=== PATIENT | female | born 1965 | race Caucasian/White ===

== ENCOUNTER 2023-08-10 20:50 | Emergency (ER) | payer OTHER, SELFPAY ==
[2023-08-10 21:02] VITALS: BP 156/76; PULSE 85; RESP 16; TEMP 36.8; O2SAT 98; BMI 21.8
--- NOTE | 2023-08-10 21:29 | XR_ITS ---
Patient: [facility] Facility:?[facility] Patient ID:?[id number] Site Patient ID:?[id number] Site :?[id number] Study:?XRay-Abdomen 2V-08/10/2023 9:56:20 PM Ordering Physician:NATY Final Report: INDICATION: Abdominal pain TECHNIQUE: Abdomen/Pelvis radiograph 3 views COMPARISON: None FINDINGS: Bowel: Moderate amount of stool is present throughout the colon which may be due to chronic constipation. The bowel gas pattern is normal without evidence of bowel obstruction. Soft tissue: No evidence of pneumoperitoneum present. No suspicious calcifications noted. Bone: Mild dextroscoliosis of the lumbar spine is noted. IMPRESSION: 1. Unremarkable appearance of the visualized abdomen. Dictated by Rene Frye MD @ 08/10/2023 10:08:23 PM Dictated by: Rene Frye MD @ 08/10/2023 22:08:28 Signed by:Tj Frye MD @08/10/2023 10:08:28 PM (Electronic Signature)
--- NOTE | 2023-08-10 21:46 | ED_ITS ---
HPI - Abdominal Pain General Date Seen: 08/10/23 Chief Complaint: Abdominal Pain Stated Complaint: possible bowel blockage Time Seen by Provider: 08/10/23 21:05 Source: patient Mode of arrival: ambulatory Limitations: no limitations History of Present Illness HPI narrative: was seen Monday in [place] [facility] for abd. pain that she thought was gallbladder, dx with constipation and prescribed MiraLAX, tried the MiraLAX for the past few days and has only been able to pass a small stool today, continues to have abd. pain rated 7/10. no hx of obstructions, abd surgical hx includes hernia repair, tuba ligation, and D&C a long time ago. today she has been having increased nausea along with the pain.Patient is a very nice 58-year-old female presents here with abdominal pain in a possible obstruction, she has had this now for approximately 5-6 days, no radiation to her back, of the pain, somewhat nauseous able to eat small amounts and drink, and passing some gas but not a lot, she is taking at least 5-6 times a MiraLax really with no avail no significant results, she notes that she had a normal colonoscopy in 2013, she is watching some grandchildren here in [place] and that is why she is here today. MD elicited complaint: abdominal pain Pertinent past history: constipation Onset (ago): day(s) (6) Pain Consistency: constant Location: periumbilical Severity: moderate Quality: cramping and stabbing Migration to: no migration Exacerbating factors: nothing Associated symptoms: nausea Related Data Home Medications Medication Instructions Recorded Confirmed bupropion HCl PO 08/10/23 sertraline .ROUTE 08/10/23 Allergies Allergy/AdvReac Type Severity Reaction Status Date / Time Penicillins Allergy Verified 08/10/23 21:09 Sulfa (Sulfonamide Allergy Verified 08/10/23 21:09 Antibiotics) Review of Systems Status of ROS Reports: 10 or more systems reviewed and unremarkable except as noted in History and below PFSH PFS Social History Smoking Status: Never smoker Do you use any of these nicotine containing products: None How often do you have a drink containing alcohol: never How often do you have six or more drinks on one occasion: Never AUDIT-C Alcohol total score: 0 Non-prescribed substance use: denies use service: No Exam Narrative: Exam Narrative: Patient appears to be in no apparent distress room 7, speaking to me normally there is no scleral icterus redness or TMs are normal oropharynx is normal, pupils are equal round reactive to light and cranial nerves 3-12 are normal her neck is supple full range of motion her chest is good air entry bilaterally her heart sounds are normal with no clicks murmurs or gallops her abdomen is not d istended, bowel sounds are normal in all quadrants there is no significant organomegaly and she does not have a lot of tenderness. There is no CVA tenderness she moves all extremities independently and well, skin reveals no petechiae or redness Const: Vital Signs, click to edit/add: Vital Signs - 24 hr 08/10/23 21:02 Temperature 98.2 F Pulse Rate [Pulse Oximeter] 85 Respiratory Rate 16 Blood Pressure [Ri ght Upper Arm] 156/76 H Pulse Oximetry 98 Oxygen Delivery Me thod Room Air Documenting provider has reviewed patient's vital signs: yes Course Course ED Course: I discussed with her that I think this likely is due to her chronic constipation, use of MiraLax or GoLYTELY is suggested, she does have mild hyponatremia, she should use some rehydration solutions along with the salt. I do not think it is in the level that we need to hospitalize her do anything other than what we are do currently doing. We did give her L of fluids while she was here. She was very accepting of this, told me she has chronic constipation, bowel was worried as the doctor told her if she did not have a bowel movement with the few doses of MiraLax that she should come in, went over signs and symptoms of worsening, she should maybe try a few enemas also. Vital Signs Vital signs: Initial Vital Signs Temperature 98.2 F 08/10/23 21:02 Temperature Source Temporal Artery Scan 08/10/23 21:02 Pulse Rate 85 08/10/23 21:02 Respiratory Rate 16 08/10/23 21:02 Blood Pressure 156/76 H 08/10/23 21:02 Blood Pressure Mean 102 08/10/23 21:02 Blood Pressure Position Supine 08/10/23 21:02 Pulse Oximetry 98 08/10/23 21:02 Oxygen Delivery Method Room Air 08/10/23 21:02 Vital Signs Temperature 98.2 F 08/10/23 21:02 Pulse Rate 85 08/10/23 21:02 Respiratory Rate 16 08/10/23 21:02 Blood Pressure 156/76 H 08/10/23 21:02 Pulse Oximetry 98 08/10/23 21:02 Oxygen Delivery Method Room Air 08/10/23 21:02 Temperature 98.2 F 08/10/23 21:02 Pulse Rate 85 08/10/23 21:02 Respiratory Rate 16 08/10/23 21:02 Blood Pressure 156/76 H 08/10/23 21:02 Pulse Oximetry 98 08/10/23 21:02 Oxygen Delivery Method Room Air 08/10/23 21:02 Medications Administered Medications: Discontinued Medications Generic Name Dose Route Start Last Admin Trade Name Freq PRN Reason Stop Dose Admin Sodium Chloride 1,000 mls @ 1,000 mls/hr 08/10/23 21:30 08/10/23 22:59 0.9 % Sodium Chloride 1000 Ml IV 08/10/23 22:29 Infused .Q1H DIPAK Infusion Ondansetron HCl 4 mg 08/10/23 21:56 08/10/23 21:59 Ondansetron 2 Mg/Ml Inj IVP 08/10/23 21:57 4 mg ONCE ONE Administration MDM - Abdominal Pain MDM Narrative Medical decision making narrative: During the evaluation of this patient I considered multiple differential diagno sis including life-threatening differentials which are appendicitis, aortic aneurysm, mesenteric ischemia, bowel perforation, ectopic , volvulus and bowel obstruction, other differential diagnosis include but are not limited to inflammatory bowel disease, cholecystitis, pancreatitis, hepatitis, gastritis, GERD, diverticulitis, peptic ulcer disease, pyelonephritis/UTI, renal colic/stone, pelvic inflammatory disease, cervicitis, endometritis, intrauterine , dysfunctional uterine bleeding, ovarian cyst/torsion, spontaneous as well as other etiologies I discussed with her that she has had a number of CT scans in her life, greater than 5 that I will start with a plain film, go from there. Medical Records Attestation: I reviewed the patient's medical records. Lab Data Attestation: I reviewed the patient's lab results. Labs: Lab Results 08/10/23 08/10/23 08/10/23 Range/Units 21:45 21:45 21:45 WBC 6.09 (4.50-11.00) K/uL RBC 3.85 L (4.00-5.20) m/uL Hgb 12.0 (12.0-16.0) gm/dL Hct 35.5 (33.0-51.0) % MCV 92 (80-100) fL MCH 31 (26-34) pg MCHC 34 (32-36) gm/dL RDW Coeff of Guadalupe 12.3 (11.5-15.5) % Plt Count 261 (140-440) K/uL Neut % (Auto) 67.2 (42.0-72.0) % Lymph % (Auto) 21.8 (20-44) % Burnet % (Auto) 8.2 (0.0-11.0) % Eos % (Auto) 2.3 (0.0-7.0) % Baso % (Auto) 0.5 (0.0-3.0) % Neut # (Auto) 4.09 (1.7-7.0) K/uL Lymph # (Auto) 1.33 (0.90-2.90) K/uL Burnet # (Auto) 0.50 (0.00-0.90) K/UL Eos # (Auto) 0.14 (0.00-0.50) K/uL Baso # (Auto) 0.03 (0.00-0.30) K/uL Abs Immat Gran (auto) 0.00 (0.00-0.30) K/uL Imm/Tot Granulo (auto) 0.0 % Sodium 130 L (135-149) mmol/L Potassium 3.8 (3.6-5.1) mmol/L Chloride 99 (96-114) mmol/L Carbon Dioxide 27 (20-32) mmol/L Anion Gap 4 L (7-15) mEq/L BUN 9 (7-30) mg/dL Creatinine 1.1 (0.5-1.5) mg/dL Estimated Creat Clear 50.91 Estimated GFR 58 ml/min Glucose 99 (60-115) mg/dL Lactate < 0.4 L (0.5-1.9) mmol/L Calcium 9.2 (8.4-10.6) mg/dL Total Bilirubin 0.4 Cancelled (0.1-1.5) mg/dL Direct Bilirubin 0.1 Cancelled (0.0-0.5) mg/dL AST 26 (12-35) U/L ALT (4-35) U/L Alkaline Phosphatase (40-150) U/L Total Protein (6.0-8.3) g/dL Albumin (3.3-5.0) g/dL Amylase (18-89) U/L Lipase (23-300) U/L Urine Color (Yellow) Urine Appearance (Clear) Urine pH (5.0-8.5) Ur Specific Kathleen (1.000-1.030) Urine Protein (Negative) Urine Glucose (UA) (Negative) Urine Ketones (Negative) Urine Blood (Negative) Urine Nitrite (Negative) Urine Bilirubin (Negative) Urine Urobilinogen (0.2-1.0) Ur Leukocyte Esterase (Negative) Urine RBC (0-2) Urine WBC (0-5) Ur Squamous Epith Cells (None-Few) Urine Bacteria (None) 08/10/23 08/10/23 08/10/23 Range/Units 21:45 21:45 21:45 WBC (4.50-11.00) K/uL RBC (4.00-5.20) m/uL Hgb (12.0-16.0) gm/dL Hct (33.0-51.0) % MCV (80-100) fL MCH (26-34) pg MCHC (32-36) gm/dL RDW Coeff of Guadalupe (11.5-15.5) % Plt Count (140-440) K/uL Neut % (Auto) (42.0-72.0) % Lymph % (Auto) (20-44) % Burnet % (Auto) (0.0-11.0) % Eos % (Auto) (0.0-7.0) % Baso % (Auto) (0.0-3.0) % Neut # (Auto) (1.7-7.0) K/uL Lymph # (Auto) (0.90-2.90) K/uL Burnet # (Auto) (0.00-0.90) K/UL Eos # (Auto) (0.00-0.50) K/uL Baso # (Auto) (0.00-0.30) K/uL Abs Immat Gran (auto) (0.00-0.30) K/uL Imm/Tot Granulo (auto) % Sodium (135-149) mmol/L Potassium (3.6-5.1) mmol/L Chloride (96-114) mmol/L Carbon Dioxide (20-32) mmol/L Anion Gap (7-15) mEq/L BUN (7-30) mg/dL Creatinine (0.5-1.5) mg/dL Estimated Creat Clear Estimated GFR ml/min Glucose (60-115) mg/dL Lactate (0.5-1.9) mmol/L Calcium (8.4-10.6) mg/dL Total Bilirubin (0.1-1.5) mg/dL Direct Bilirubin (0.0-0.5) mg/dL AST Cancelled (12-35) U/L ALT 14 Cancelled (4-35) U/L Alkaline Phosphatase 98 Cancelled (40-150) U/L Total Protein 7.4 (6.0-8.3) g/dL Albumin (3.3-5.0) g/dL Amylase (18-89) U/L Lipase (23-300) U/L Urine Color (Yellow) Urine Appearance (Clear) Urine pH (5.0-8.5) Ur Specific Kathleen (1.000-1.030) Urine Protein (Negative) Urine Glucose (UA) (Negative) Urine Ketones (Negative) Urine Blood (Negative) Urine Nitrite (Negative) Urine Bilirubin (Negative) Urine Urobilinogen (0.2-1.0) Ur Leukocyte Esterase (Negative) Urine RBC (0-2) Urine WBC (0-5) Ur Squamous Epith Cells (None-Few) Urine Bacteria (None) 08/10/23 08/10/23 08/10/23 Range/Units 21:45 21:45 21:47 WBC (4.50-11.00) K/uL RBC (4.00-5.20) m/uL Hgb (12.0-16.0) gm/dL Hct (33.0-51.0) % MCV (80-100) fL MCH (26-34) pg MCHC (32-36) gm/dL RDW Coeff of Guadalupe (11.5-15.5) % Plt Count (140-440) K/uL Neut % (Auto) (42.0-72.0) % Lymph % (Auto) (20-44) % Burnet % (Auto) (0.0-11.0) % Eos % (Auto) (0.0-7.0) % Baso % (Auto) (0.0-3.0) % Neut # (Auto) (1.7-7.0) K/uL Lymph # (Auto) (0.90-2.90) K/uL Burnet # (Auto) (0.00-0.90) K/UL Eos # (Auto) (0.00-0.50) K/uL Baso # (Auto) (0.00-0.30) K/uL Abs Immat Gran (auto) (0.00-0.30) K/uL Imm/Tot Granulo (auto) % Sodium (135-149) mmol/L Potassium (3.6-5.1) mmol/L Chloride (96-114) mmol/L Carbon Dioxide (20-32) mmol/L Anion Gap (7-15) mEq/L BUN (7-30) mg/dL Creatinine (0.5-1.5) mg/dL Estimated Creat Clear Estimated GFR ml/min Glucose (60-115) mg/dL Lactate (0.5-1.9) mmol/L Calcium (8.4-10.6) mg/dL Total Bilirubin (0.1-1.5) mg/dL Direct Bilirubin (0.0-0.5) mg/dL AST (12-35) U/L ALT (4-35) U/L Alkaline Phosphatase (40-150) U/L Total Protein Cancelled (6.0-8.3) g/dL Albumin 4.5 Cancelled (3.3-5.0) g/dL Amylase 101 H (18-89) U/L Lipase 48 (23-300) U/L Urine Color Yellow (Yellow) Urine Appearance Clear (Clear) Urine pH 7.5 (5.0-8.5) Ur Specific Kathleen 1.015 (1.000-1.030) Urine Protein Negative (Negative) Urine Glucose (UA) Negative (Negative) Urine Ketones Negative (Negative) Urine Blood Negative (Negative) Urine Nitrite Negative (Negative) Urine Bilirubin Negative (Negative) Urine Urobilinogen 0.2 (0.2-1.0) Ur Leukocyte Esterase Negative (Negative) Urine RBC 0-2 (0-2) Urine WBC 0-2 (0-5) Ur Squamous Epith Cells None (None-Few) Urine Bacteria None (None) Imaging Data Abdominal x-ray: Attestation: I have reviewed the pertinent imaging results. My impression: Chronic constipation no air-fluid levels to suggest a bowels obstruction Radiologist's impression: Patient: NABILA KAPOOR Facility:?[facility] Patient ID:?[id number] Site Patient ID:?[id number] Site :?[id number] Study:?XRay-Abdomen 2V-08/10/2023 9:56:20 PM Ordering Physician:NATY Final Report: INDICATION: Abdominal pain TECHNIQUE: Abdomen/Pelvis radiograph 3 views COMPARISON: None FINDINGS: Bowel: Moderate amount of stool is present throughout the colon which may be due to chronic constipation. The bowel gas pattern is normal without evidence of bowel obstruction. Soft tissue: No evidence of pneumoperitoneum present. No suspicious calcifications noted. Bone: Mild dextroscoliosis of the lumbar spine is noted. IMPRESSION: 1. Unremarkable appearance of the visualized abdomen. Dictated by Rene Frye MD @ 08/10/2023 10:08:23 PM Dictated by: Rene Frye MD @ 08/10/2023 22:08:28 (Electronic Signature) Discharge Plan Discharge Clinical Impression: Hyponatremia, Constipation Patient Disposition: Home w/ Parent or Adult Condition: Stable Instructions: Constipation (DC), Acute Abdominal Pain (ED), Megacolon (DC), Fleet Enema (ED) Additional Instructions: Home rest use of medications such as MiraLax, might help to have a couple Fleet enemas, continue with rehydration solutions such as Gatorade, Pedialyte, and little bit less water. Follow-up with GI if ongoing issues. Walking exercise also is helpful for this too. Activity Level: Light activity Discharge Diet: Regular Prescriptions: No Action sertraline .ROUTE bupropion HCl PO Follow Up/Referrals: Provider,Not a Local [Primary Care Provider] - Stand Alone Forms: [email or web address] Info Instructions
[2023-08-10] MEDS: 0.9 % SODIUM CHLORIDE 1000 ml 1,000 ML IV (21:50)
[2023-08-10 21:53] LABS: Lactate* < 0.4 mmol/L (0.5-1.9)
[2023-08-10 21:55] LABS: Appearance Urine Clear (Clear); Bilirubin Urine Negative (Negative); Blood Urine Negative (Negative); Color Urine Yellow (Yellow); Glucose Urine Negative (Negative); Ketones Urine Negative (Negative); Leukocyte Esterase Urine Negative (Negative); Nitrite Urine Negative (Negative); Protein Urine Negative (Negative); Specific Gravity Urine 1.015 (1.000-1.030); Urobilinogen Urine 0.2 (0.2-1.0); pH Urine 7.5 (5.0-8.5)
[2023-08-10 21:57] LABS: Basophils Absolute Auto 0.03 K/uL (0.00-0.30); Basophils Percent Auto 0.5 % (0.0-3.0); Eosinophils Absolute Auto 0.14 K/uL (0.00-0.50); Eosinophils Percent Auto 2.3 % (0.0-7.0); Hematocrit 35.5 % (33.0-51.0); Lymphocytes Absolute Auto 1.33 K/uL (0.90-2.90); Lymphocytes Percent Auto 21.8 % (20-44); Mean Corpuscular HGB Conc 34 gm/dL (32-36); Mean Corpuscular Hemoglobin 31 pg (26-34); Mean Corpuscular Volume 92 fL (80-100); Monocytes Percent Auto 8.2 % (0.0-11.0); Neutrophils Absolute Auto 4.09 K/uL (1.7-7.0); Neutrophils Percent Auto 67.2 % (42.0-72.0); Platelet Count* 261 K/uL (140-440); RDW Coefficient of Variation % 12.3 % (11.5-15.5); Red Blood Count 3.85 m/uL (4.00-5.20); White Blood Count* 6.09 K/uL (4.50-11.00)
[2023-08-10 21:59] LABS: Slide Review Reflex No
[2023-08-10] MEDS: ONDANSETRON 2 MG/ML inj 4 MG IVP (21:59)
[2023-08-10 22:19] LABS: RBC Urine 0-2 (0-2); WBC Urine 0-2 (0-5)
[2023-08-10 22:20] LABS: Albumin* 4.5 g/dL (3.3-5.0); Chloride* 99 mmol/L (96-114)
[2023-08-10 22:21] LABS: Potassium* 3.8 mmol/L (3.6-5.1); Sodium* 130 mmol/L (135-149)
[2023-08-10 22:23] LABS: Amylase* 101 U/L (18-89); Anion Gap 4 mEq/L (7-15); Aspartate Amino Transferase* 26 U/L (12-35); Bilirubin Direct* 0.1 mg/dL (0.0-0.5); Bilirubin Total* 0.4 mg/dL (0.1-1.5); Blood Urea Nitrogen* 9 mg/dL (7-30); Carbon Dioxide* 27 mmol/L (20-32); Creatinine* 1.1 mg/dL (0.5-1.5); Est. Creatinine Clearance* 50.91; Estimated Glomerular Filt Rate 58 ml/min; Glucose* 99 mg/dL (60-115); Total Protein* 7.4 g/dL (6.0-8.3)
[2023-08-10 22:24] LABS: Alanine Aminotransferase* 14 U/L (4-35); Alkaline Phosphatase* 98 U/L (40-150); Calcium* 9.2 mg/dL (8.4-10.6); Lipase* 48 U/L (23-300)
== END 2023-08-10 23:23 | disposition home or self-care (01) ==
PROVIDERS: Emergency Provider Family Medicine
DX: K59.00 Constipation, unspecified (principal); E87.1 Hypo-osmolality and hyponatremia
CPT/HCPCS: 36415; 74019; 80048; 80076; 81001; 82150; 83605; 83690; 85025; 96374; 99284; J2405; J7030